=== PATIENT | male | born 1990 | race Caucasian/White ===

== ENCOUNTER 2019-12-24 19:52 | Emergency (ER) | payer BC ==
[2019-12-24 20:17] VITALS: RESP 18
[2019-12-24] MEDS ORDERED: GLUCAGON 1 MG/ML VIAL IVP STA (20:24)
[2019-12-24] MEDS ORDERED: METOCLOPRAMIDE 5 MG/ML 2 ML VIAL IVP STA (20:25)
[2019-12-24] MEDS ORDERED: DIAZEPAM 5 MG/ML 2 ML INJ IVP STA (20:25)
[2019-12-24] MEDS ORDERED: NITROGLYCERIN SL TABS 0.4 MG TAB SUBLINGUAL STA (20:25)
--- NOTE | 2019-12-24 20:31 | ED ---
General Adult HPI - General Chief complaint: ENT Stated complaint: Food Possibly Stuck in throat Time Seen by Provider: 12/24/19 20:22 Source: patient Mode of arrival: ambulatory Limitations: no limitations - History of Present Illness Initial comments: Patient is a 29-year-old male with history of some vaginal foreign body presenting to the emergency department with chief complaint of food stuck in the esophagus. Patient states using pieces states earlier today when he says that it feels stuck in the esophagus. Patient reports he attempted to drink some fluids but was not able to keep anything down. States this is previously occurred and he needed a scope. Patient denies any choking episodes. Patient states no difficulty breathing. - Related Data Allergies Allergy/AdvReac Type Severity Reaction Status Date / Time No Known Allergies Allergy Verified 12/24/19 20:17 Review of Systems ROS Statement: Those systems with pertinent positive or pertinent negative responses have been documented in the HPI. ROS Other: All systems not noted in ROS Statement are negative. Past Medical History Past Medical History: No Reported History History of Any Multi-Drug Resistant Organisms: None Reported Past Surgical History: No Surgical Hx Reported Past Psychological History: No Psychological Hx Reported Smoking Status: Never smoker Past Alcohol Use History: Occasional Past Drug Use History: None Reported General Exam Limitations: no limitations General appearance: alert, in no apparent distress Head exam: Present: atraumatic, normocephalic, normal inspection Eye exam: Present: normal appearance, PERRL, EOMI Pupils: Present: normal accommodation ENT exam: Present: normal exam, normal oropharynx (Unable to visualize any foreign body.), mucous membranes moist Neck exam: Present: normal inspection, full ROM. Absent: tenderness Respiratory exam: Present: normal lung sounds bilaterally. Absent: respiratory distress, wheezes Cardiovascular Exam: Present: regular rate, normal rhythm, normal heart sounds. Absent: bradycardia GI/Abdominal exam: Present: soft. Absent: distended, tenderness, guarding Extremities exam: Present: normal inspection, full ROM. Absent: tenderness Back exam: Present: normal inspection, full ROM. Absent: tenderness Neurological exam: Present: alert, oriented X3 Psychiatric exam: Present: normal affect, normal mood Skin exam: Present: warm, dry, intact, normal color Course Vital Signs 12/24/19 12/24/19 20:12 21:53 Temperature 98.7 F 98.3 F Pulse Rate 72 66 Respiratory 18 18 Rate Blood Pressure 130/69 112/64 O2 Sat by Pulse 100 97 Oximetry Medical Decision Making - Medical Decision Making Patient a 29-year-old male presenting to emergency Department with chief complaint of food stuck in esophagus. Physical examination is unremarkable. Patient was given Reglan, Valium, glucagon, nature. Patient was advised to drink some coronary fluids afterward. Patient was able to pass the esophageal foreign body. Patient was able to freely drinking fluids afterward. Patient states he feels tremendously better. Patient advised to follow with a GI specialist. Return parameters were thoroughly discussed with patient was understanding and agreeable. Case discussed with physician. Disposition Clinical Impression: Esophageal foreign body Disposition: HOME SELF-CARE Condition: Stable Instructions (If sedation given, give patient instructions): Esophageal Foreign Body (ED) Additional Instructions: Return to emergency department if symptoms worsen. Is patient prescribed a controlled substance at d/c from ED?: No Referrals: Orly Chan MD [Primary Care Provider] - 1-2 days Time of Disposition: 21:08
[2019-12-24 21:55] VITALS: BP 112/64; PULSE 66; TEMP 98.3
== END 2019-12-24 21:53 | disposition home or self-care (01) ==
LOC: EC 19:52
DX: T18.128A Food in esophagus causing other injury, initial encounter (principal); X58.XXXA Exposure to other specified factors, initial encounter
CPT/HCPCS: 99283; 96374; 96375 ×2; J1610; J2765; J3360

== ENCOUNTER → 2020-08-17 | Outpatient (CLI) | payer BC ==
--- NOTE | 2020-08-17 12:30 | FL ---
EXAMINATION TYPE: FL barium swallow DATE OF EXAM: 08/17/2020 CLINICAL HISTORY: Dysphasia, food getting stuck TECHNIQUE: A double contrast esophagram is performed utilizing air and barium. A total of 15 second s of fluoroscopic time was utilized during procedure. Images: 129 COMPARISON: None FINDINGS: Esophagus dilates to normal caliber has normal contour to the gastroesophageal junction. Gastroesopha geal junction opens to normal caliber. There is complete stripping the esophageal bolus the horizonta l drinking position. No suspicious intraluminal or extramural defects are evident. There are are scattered tertiary contractions present during the examination. Findings are nonspecifi c but can be related to presbyesophagus. Reflux was not identified during the exam. IMPRESSION: 1. Mild presbyesophagus
== END | disposition home or self-care (01) ==
LOC: RADUSWWP 09:50
PROVIDERS: ATTEND Family Medicine
DX: K22.8 Other specified diseases of esophagus (principal)
CPT/HCPCS: 74220

== ENCOUNTER → 2021-12-05 | Outpatient (CLI) | payer BC ==
--- NOTE | 2021-12-05 15:34 | CONS ---
CONSULTATION DATE OF SERVICE: 12/05/2021 31-year-old gentleman has been evaluated in [facility] for symptoms of significant excessive daytime sleepiness and possible obstructive sleep apnea-hypopnea syndrome. HISTORY OF PRESENT ILLNESS SLEEP-WAKE EVALUATION: SLEEP SCHEDULE: Patient's usual sleep schedule from 11 p.m. until 5:30 a.m. on weekdays and from 11 or 11:30 p.m. to 8 a.m. on weekends. FALLING ASLEEP: Usually no problems with falling asleep. No TV in bedroom. DURING SLEEP: The patient sleeps usually on the back position. He snores and wakes up from sleep once with nocturia. DURING THE DAY/SLEEP WAKE EVALUATION: In the morning, the patient wakes up tired, falling asleep during the day. [place] Sleepiness Scale is very significantly increased to 19. The patient may take one nap during the day, but according to him, he is ready to take naps, but because of business during the day, he is not able to do it. Occasional history of starting see dreams after falling asleep, which might indicate hypnagogic hallucinations. No history of sleep paralysis or cataplexy. PAST MEDICAL HISTORY: Positive for allergy. MEDICATIONS: None. SOCIAL HISTORY: Negative for smoking, alcohol consumption occasional. FAMILY HISTORY: Heart problems. REVIEW OF SYSTEMS: Sleepiness during the day. PHYSICAL EXAMINATION: GENERAL: gentleman without distress. BP 120/62, HR 58, RR 14, height 5 feet 9-1/2 inches, weight 148 pounds. Body mass index 21.5, temperature 97.1, oxygen saturation at room air 98%. Oropharynx position of soft palate, Mallampati 2. Neck 15 inches in circumference. NECK: Supple, no JVD. Thyroid is not palpable. LUNGS: Clear to percussion and to auscultation. Good air exchange. No wheezing or rhonchi. HEART: S1, S2 regular. No murmurs, gallops, or rubs. ABDOMEN: Soft and nontender. Bowel sounds are present. No organomegaly appreciated. EXTREMITIES: No clubbing or cyanosis. [employer] AP[employer]ENTICE: Awake, alert, and oriented X3. Cranial nerves 2 to 7 intact. There is no fasciculation or atrophy. noted. No focal deficits observed. IMPRESSION: 1. Snoring awakenings from sleep with nocturia, sleepiness, rule out obstructive sleep apnea-hypopnea syndrome. 2. Significant excessive daytime sleepiness. [place] Sleepiness Scale is 19. According to patient, he is ready for naps any time. Differential diagnosis include hypersomnia. No history of cataplexy or sleep paralysis. 3. Allergy. PLAN: 1. Home sleep apnea test for to check patient's breathing during sleep. 2. If home sleep apnea test will be negative, we will proceed with multiple sleep latency test for objective evaluation patient's symptoms of excessive daytime sleepiness. 3. CPAP/BiPAP titration if sleep study confirms obstructive sleep apnea-hypopnea syndrome. 4. Preferable position during sleep on the side. 5. No driving if patient feels any sleepiness. 6. I will see patient for follow up visit to explain results of testing and following plan. Thank you very much for referring this patient for consultation. Sincerely, Norman Goldberg MD, PhD, FAASM Diplomat of [place] [employer] Sleep Medicine Board of [place] [employer] [facility] [place] MMANAL / BRIANNAN: [id number] /
== END ==
LOC: SLEEP 13:47
PROVIDERS: ATTEND Internal Medicine
DX: G47.10 Hypersomnia, unspecified (principal); R06.83 Snoring; T78.40XA Allergy, unspecified, initial encounter
CPT/HCPCS: 99211

== ENCOUNTER → 2023-03-12 | Outpatient (CLI) | payer BC ==
--- NOTE | 2023-03-13 07:24 | MM ---
Reason for Exam: Clinical finding. Indicated Problems: Patient History: Maternal grandmother had breast cancer, age 83. Tissue Density: There are scattered fibroglandular densities. Findings: Analyzed By CAD. No distinct mass or distortion. No suspicious calcifications seen. Overall Assessment: Negative, BI-RAD 1 Management: Clinical Management of both breasts in 1 year. Results were given to the patient verbally at the time of exam. Patient should continue monthly self-breast exams. A clinical breast exam by your physician is recommended on an annual basis. This exam should not preclude additional follow-up of suspicious palpable abnormalities. Note on Leisa scores and lifetime risk: 1. A Leisa score greater than 3% is considered moderate risk. If this is the case, consider specialist referral to assess eligibility for a risk reducing agent. 2. If overall lifetime risk for the development of breast cancer is 20% or higher, the patient may qualify for future screening with alternating mammogram and breast MRI. Electronically signed and approved by: Luis Felipe Miranda M.D. Radiologis
== END | disposition home or self-care (01) ==
LOC: RADMAMWWP 09:35
PROVIDERS: ATTEND Family Medicine
DX: N64.4 Mastodynia (principal); Z80.3 Family history of malignant neoplasm of breast
CPT/HCPCS: 77062; 77066

== ENCOUNTER → 2023-03-12 | Outpatient (CLI) | payer BC ==
--- NOTE | 2023-03-12 09:51 | XR ---
EXAMINATION TYPE: XR chest 2V DATE OF EXAM: 03/12/2023 COMPARISON: NONE HISTORY: Chest pain. TECHNIQUE: Frontal and lateral views of the chest are obtained. FINDINGS: There is no focal air space opacity, pleural effusion, or pneumothorax seen. The cardiac silhouette size is within normal limits. The osseous structures are intact. IMPRESSION: No acute cardiopulmonary process.
== END | disposition home or self-care (01) ==
LOC: RADXRMAIN 09:07
PROVIDERS: ATTEND Family Medicine
DX: R07.9 Chest pain, unspecified (principal); N64.4 Mastodynia
CPT/HCPCS: 71046